=== PATIENT | male | born 1950 | race Caucasian/White ===

== ENCOUNTER 2020-01-29 15:02 | Emergency (ER) | payer BC ==
[~2020-01-29] VITALS: Ht 180.3 cm; Wt 92.7 kg
[2020-01-29 15:11] VITALS: TEMP 98.5
[2020-01-29] MEDS ORDERED: TYLENOL 325MG325 MG PO (15:47)
[2020-01-29] MEDS ORDERED: FARXIGA10 PO (15:48)
[2020-01-29] MEDS ORDERED: ASPIRIN 32325 MG/TAB PO (15:48)
[2020-01-29] MEDS ORDERED: LIPITOR 80MG80 MG PO (15:48)
[2020-01-29] MEDS ORDERED: GLUCOPHAGE1000 MG PO (15:49)
[2020-01-29] MEDS ORDERED: LOPID 600M600 MG/TAB PO (15:49)
[2020-01-29] MEDS ORDERED: TOPROL XL 25MG25 MG (15:50)
[2020-01-29 16:40] LABS: COLLECTION METHOD CLEAN CATCH
[2020-01-29 16:45] LABS: PH 6 (5-8); SQUAMOUS EPITHELIAL None Seen /hpf; URINE APPEARANCE Clear; URINE BACTERIA None Seen /hpf; URINE BILIRUBIN Negative (NEGATIVE); URINE BLOOD Negative (NEGATIVE); URINE COLOR Yellow; URINE GLUCOSE 3+ (NEGATIVE); URINE KETONE Trace (NEGATIVE); URINE LEUKOCYTE ESTERASE Negative (NEGATIVE); URINE NITRATE Negative (NEGATIVE); URINE PROTEIN(semi-quant) Negative (NEGATIVE); URINE RBC None Seen /hpf
[2020-01-29 17:10] VITALS: BP 134/86; PULSE 72
== END 2020-01-29 17:10 | disposition home or self-care (01) ==
LOC: COL.ER 15:02
PROVIDERS: Nurse Practitioner Primary Care
DX: K40.91 Unilateral inguinal hernia, without obstruction or gangrene, recurrent (principal); I10 Essential (primary) hypertension; E11.9 Type 2 diabetes mellitus without complications; E78.5 Hyperlipidemia, unspecified; I25.10 Atherosclerotic heart disease of native coronary artery without angina pectoris; Z95.5 Presence of coronary angioplasty implant and graft; Z88.5 Allergy status to narcotic agent; Z88.6 Allergy status to analgesic agent; Z79.82 Long term (current) use of aspirin; Z79.84 Long term (current) use of oral hypoglycemic drugs

== ENCOUNTER 2020-02-17 08:34 | Day surgery (SDC) | payer BC ==
[2020-02-17] VITALS (7 sets, daily range): BP systolic 129–142; BP diastolic 75–83; PULSE 72–86; TEMP 97.4–98.3
[~2020-02-17] VITALS: Ht 180.3 cm; Wt 96.5 kg
[~2020-02-17 08:34] MED LIST: ASPIRIN 32325 MG/TAB PO; FARXIGA10 PO; GLUCOPHAGE1000 MG PO; LIPITOR 80MG80 MG PO; LOPID 600M600 MG/TAB PO; TOPROL XL 25MG25 MG PO; TYLENOL 325MG325 MG PO
[2020-02-17 10:13] LABS: BASO % 0.5 % (0.0-2.0); EOS # 0.2 (0.0-0.7); EOS % 2.6 % (0-4.0); GRAN # 5.5 (1.4-6.5); GRAN % 67.9 % (42.2-75.2); HEMATOCRIT 49.1 % (42.0-52.0); HEMOGLOBIN 16.7 g/dl (13.5-18.0); LYMPH # 1.7 (1.2-3.4); MEAN CELL VOLUME 89 fl (80.0-100.0); MEAN CORPUSCULAR HEMOGLOBIN 30 pg (27.0-31.0); MEAN CORPUSCULAR HGB CONC 34 g/dl (33.0-37.0); MEAN PLATELET VOLUME 9.9 fl (7.4-10.4); MONO # 0.6 (0.1-0.6); MONO % 7.5 % (1.7-9.3); PLATELET COUNT 213 K/mm3 (130-400); RED BLOOD COUNT 5.55 M/mm3 (4.20-5.60); REDCELL DISTRIBUTION WIDTH-CV 13.1 % (11.5-14.5)
[2020-02-17 10:22] LABS: ALBUMIN 4.3 gm/dL (3.5-5.0); BILIRUBIN,TOTAL 0.9 mg/dL (0.0-1.0); CALCIUM 9.2 mg/dL (8.4-10.2); CREATININE, serum 0.78 (0.66-1.25); POTASSIUM 4.2 mmol/L (3.4-5.0); TOTAL PROTEIN 7.2 gm/dL (6.4-8.2)
[2020-02-17] MEDS ORDERED: ULTRAM 50MG TAB50 MG PO (12:31)
[2020-02-17] MEDS ORDERED: COLACE 100100 MG/CAP PO (12:32)
--- NOTE | 2020-02-17 13:06 | NUR ---
Pt to [facility] bay 1 via cart from PACU. Pt drowsy, but awake. Pt rates pain 5/10 to groin area. Pt also c/o mild nausea. O2 on at 2 liters via nasal canula. Exofin to surgical site on left groin. Clean, dry, and intact. IV fluids infusing to right hand without difficulties. Will continue to monitor. Call light within reach. Side rails up x2.
--- NOTE | 2020-02-17 13:21 | NUR ---
Fentanyl 25mcg IVSP given per PRN orders for pain, and Phenergan 6.25mg IVSP given per PRN orders. Will continue to monitor. Call light within reach.
--- NOTE | 2020-02-17 13:36 | NUR ---
Pt sleeping. Respirations even and unlabored. Will continue to monitor. Call light within reach.
--- NOTE | 2020-02-17 13:50 | NUR ---
Pt continues to sleep. Respirations even and unlabored. Will continue to monitor. Call light within reach.
--- NOTE | 2020-02-17 14:21 | NUR ---
Pt continues to sleep. Pt awoken to assess pain and nausea. Pt awakens easily. Pt rates pain 5/10 to left lower groin. Nausea "comes and goes" he states. Will continue to monitor. Call light within reach.
--- NOTE | 2020-02-17 14:50 | NUR ---
Pt awakens as nurse walks in. Pt grimaces with movement. Pt rates pain 5/10. Apple juice and pudding given per pt request. Will continue to monitor. Call light within reach.
--- NOTE | 2020-02-17 15:25 | NUR ---
This nurse spoke with about pt's pain, and no PO PRN pain medication was orders. Orders for Ultram PO PRN given.
--- NOTE | 2020-02-17 15:30 | NUR ---
Pt up to restroom with stand by assist. Gait slow and steady. Pt rates pain 3/10 while up and moving. Pt voids without difficulties. Pt back to room. Ultram 100 mg po given per prn orders. Pt assisted with dressing. Call light within reach.
--- NOTE | 2020-02-17 15:50 | NUR ---
Discharge instructions given. Pt voices understanding. IV site discontinued with all parts intact.
--- NOTE | 2020-02-17 16:00 | NUR ---
Pt escorted to private car via wheel chair. Pt accompanied home by his .
== END 2020-02-17 16:00 | disposition home or self-care (01) ==
LOC: SDCO 08:34
PROVIDERS: Surgery
DX: K40.91 Unilateral inguinal hernia, without obstruction or gangrene, recurrent (principal); K41.90 Unilateral femoral hernia, without obstruction or gangrene, not specified as recurrent; Z79.82 Long term (current) use of aspirin; Z79.84 Long term (current) use of oral hypoglycemic drugs; I10 Essential (primary) hypertension; E11.9 Type 2 diabetes mellitus without complications; E78.00 Pure hypercholesterolemia, unspecified; Z86.718 Personal history of other venous thrombosis and embolism; I25.10 Atherosclerotic heart disease of native coronary artery without angina pectoris; I25.2 Old myocardial infarction; E78.5 Hyperlipidemia, unspecified; K21.9 Gastro-esophageal reflux disease without esophagitis
CPT/HCPCS: C1781; J0690; J1100; J1885; J2405; J2550; J2704; J3010; J3475; J7030

== ENCOUNTER 2021-02-22 18:46 | Inpatient (IN) | payer BC, MEDICARE ==
[~2021-02-22] VITALS: Ht 182.9 cm; Wt 108.3 kg
[~2021-02-22 18:46] MED LIST changes: +COLACE 100100 MG/CAP PO; +ULTRAM 50MG TAB50 MG PO
[2021-02-22 19:43] LABS: ARTERIAL BLD GAS O2 SATURATION 96.4 % (92-100); ARTERIAL BLD GAS TCO2 CT 19.2; ARTERIAL BLOOD GAS BASE EXCESS -2.2 (-2-2); ARTERIAL BLOOD GAS HCO3 18.5 meq/L (22-26); ARTERIAL BLOOD GAS PO2 80.4 mmHg (80-100); ARTERIAL BLOOD GAS pH 7.52 (7.35-7.45)
[2021-02-22 19:44] LABS: ARTERIAL BLOOD GAS PCO2 23.3 mmHg (35-45)
[2021-02-22 20:10] LABS: BASO % 0.3 % (0.0-2.0); GRAN # 10.6 K/mm3 (1.4-6.5); GRAN % 88.3 % (42.2-75.2); HEMATOCRIT 41.9 % (42.0-52.0); HEMOGLOBIN 14.2 g/dl (13.5-18.0); LYMPH # 0.5 K/mm3 (1.2-3.4); LYMPH % 4.5 % (20.0-51.0); MEAN CELL VOLUME 88 fl (80.0-100.0); MEAN CORPUSCULAR HEMOGLOBIN 30 pg (27-31); MEAN CORPUSCULAR HGB CONC 34 g/dl (33.0-37.0); MEAN PLATELET VOLUME 9.8 fl (7.4-10.4); MONO # 0.5 K/mm3 (0.1-0.6); MONO % 4.4 % (1.7-9.3); PLATELET COUNT 310 K/mm3 (130-400); RED BLOOD COUNT 4.78 M/mm3 (4.20-5.60); REDCELL DISTRIBUTION WIDTH-CV 13.4 % (11.5-14.5)
[2021-02-22 20:18] LABS: COLLECTION METHOD CLEAN CATCH
[2021-02-22 20:28] LABS: MUCOUS Present (NOT PRESENT); PH 5 (5-8); SQUAMOUS EPITHELIAL 0-2 /hpf (0-10); URINE APPEARANCE Hazy (CLEAR/HAZY); URINE BACTERIA None Seen /hpf (NONE SEEN); URINE BILIRUBIN Negative (NEGATIVE); URINE BLOOD 1+ (NEGATIVE); URINE COLOR Yellow (YELLOW); URINE GLUCOSE 3+ (NEGATIVE); URINE KETONE Trace (NEGATIVE); URINE LEUKOCYTE ESTERASE Negative (NEGATIVE); URINE NITRATE Negative (NEGATIVE); URINE PROTEIN(semi-quant) 1+ (NEGATIVE); URINE RBC 0-2 /hpf (0-2); URINE UROBILINOGEN Negative (NEGATIVE)
[2021-02-22 20:28] LABS: ALBUMIN 2.8 gm/dL (3.4-4.8); BILIRUBIN,TOTAL 1.8 mg/dL (0.2-1.2); CALCIUM 8.9 mg/dL (8.4-10.2); CREATININE, serum 1.59 mg/dL (0.72-1.25)
[2021-02-22] MEDS ORDERED: TRICOR 48MG48 MG PO (20:32)
[2021-02-22] MEDS ORDERED: COZAAR 25MG25 MG/TAB PO (20:33)
[2021-02-23] VITALS (305 sets, daily range): BP systolic 92–99; BP diastolic 52–66; PULSE 110–120; TEMP 97.9–99.3; O2SAT 86–100
[2021-02-23 00:21] LABS: CALCIUM 8.4 mg/dL (8.4-10.2); CREATININE, serum 1.28 mg/dL (0.72-1.25); POTASSIUM 3.7 mmol/L (3.5-4.5)
--- NOTE | 2021-02-23 09:46 | NUR ---
Patient is currently on a ventilator and being boarded in the ED until an ICU bed is available. Patient is COVID positive. pest control worker contacted patient's spouse, Milady Caicedo #[phone] and confirmed that patient does not have a living will or a durable power of county attorney for health care. Worker discussed desired code status with spouse and spouse states that she wishes patient to be a Full Code. Worker contacted Dr Garcia's office, as she is patient's primary care provider, and confirmed that they do not have any advance directives on file in their office. Worker contacted patient's nurse, Brenda, and advised of the above information.
[2021-02-23 09:47] LABS: HEMATOCRIT 38.7 % (42.0-52.0); HEMOGLOBIN 12.8 g/dl (13.5-18.0); MEAN CELL VOLUME 91 fl (80.0-100.0); MEAN CORPUSCULAR HEMOGLOBIN 30 pg (27-31); MEAN CORPUSCULAR HGB CONC 33 g/dl (33.0-37.0); MEAN PLATELET VOLUME 9.6 fl (7.4-10.4); RED BLOOD COUNT 4.27 M/mm3 (4.20-5.60); REDCELL DISTRIBUTION WIDTH-CV 13.7 % (11.5-14.5)
[2021-02-23 09:51] LABS: PLATELET COUNT 180 K/mm3 (130-400)
[2021-02-23 10:18] LABS: BAND 9 % (0-10); LYMPHOCYTE 8 % (20.0-51.0); NEUTROPHILS 83 % (42.0-75.2); NUCLEATED RED BLOOD CELL 2 (0-6)
[2021-02-23 10:19] LABS: ALBUMIN 2.5 gm/dL (3.4-4.8); ANISOCYTOSIS 1+; BILIRUBIN,TOTAL 1.4 mg/dL (0.2-1.2); CALCIUM 7.6 mg/dL (8.4-10.2); CREATININE, serum 1.84 mg/dL (0.72-1.25); PLATELET ESTIMATE NORMAL (NORMAL); POTASSIUM 4.4 mmol/L (3.5-4.5); TOTAL PROTEIN 6.3 gm/dL (6.2-8.1)
[2021-02-23 10:20] LABS: OVALOCYTES 1+; POLYCHROMASIA 1+
[2021-02-23 11:32] LABS: ARTERIAL BLD GAS O2 SATURATION 99.3 % (92-100); ARTERIAL BLD GAS TCO2 CT 17.8; ARTERIAL BLOOD GAS BASE EXCESS -12.9 (-2-2); ARTERIAL BLOOD GAS HCO3 16.2 meq/L (22-26); ARTERIAL BLOOD GAS PCO2 50.2 mmHg (35-45); ARTERIAL BLOOD GAS PO2 210.3 mmHg (80-100); ARTERIAL BLOOD GAS pH 7.13 (7.35-7.45)
[2021-02-23 13:40] LABS: CALCIUM 7.3 mg/dL (8.4-10.2); CREATININE, serum 2.13 mg/dL (0.72-1.25); POTASSIUM 4.2 mmol/L (3.5-4.5)
--- NOTE | 2021-02-23 17:10 | NUR ---
MD Mookie in room for Non-tunneled hemodialysis catheter placement. Timeout compeleted, JOAQUIN Hernandez in room assisting, all in agreement for procedure
--- NOTE | 2021-02-23 17:29 | NUR ---
Sedation Vacation not performed per MD Thanh
--- NOTE | 2021-02-23 17:31 | NUR ---
MD Natividad notified HD catheter in place and OK to use per MD Mookie
--- NOTE | 2021-02-23 17:32 | NUR ---
pt intubated by dr lam rn in room.
[2021-02-23 18:08] LABS: ARTERIAL BLD GAS TCO2 CT 18.1; ARTERIAL BLOOD GAS BASE EXCESS -8.7 (-2-2); ARTERIAL BLOOD GAS PO2 100.7 mmHg (80-100); ARTERIAL BLOOD GAS pH 7.29 (7.35-7.45)
[2021-02-23 19:39] LABS: CALCIUM 7.3 mg/dL (8.4-10.2); CREATININE, serum 2.45 mg/dL (0.72-1.25); POTASSIUM 4.2 mmol/L (3.5-4.5)
--- NOTE | 2021-02-23 20:00 | NUR ---
Patient intubed and sedated. Patient coughs against vent. On sedation and pressors. Patient has a stage 2 pressure ulcer to coccyx. Mottled/purple discoloration from waist down. Cap refill >2 secs. Pulses in lower ext present but weak. Rectal temp probe placed. Patient repositioned.
[2021-02-24] VITALS (654 sets, daily range): BP systolic 103–150; BP diastolic 52–74; PULSE 97–151; TEMP 97.5–100.6; O2SAT 90–100
[2021-02-24 00:59] LABS: ARTERIAL BLD GAS O2 SATURATION 98.9 % (92-100); ARTERIAL BLD GAS TCO2 CT 18.8; ARTERIAL BLOOD GAS BASE EXCESS -7.9 (-2-2); ARTERIAL BLOOD GAS HCO3 17.6 meq/L (22-26); ARTERIAL BLOOD GAS PCO2 36.1 mmHg (35-45); ARTERIAL BLOOD GAS pH 7.31 (7.35-7.45)
[2021-02-24 01:00] LABS: ARTERIAL BLOOD GAS PO2 135.2 mmHg (80-100)
[2021-02-24 02:06] LABS: GASTROCCULT POSITIVE; pH GASTRIC CONTENTS 4
[2021-02-24 05:34] LABS: HEMOGLOBIN 11.1 g/dl (13.5-18.0); MEAN CELL VOLUME 92 fl (80.0-100.0); MEAN CORPUSCULAR HEMOGLOBIN 30 pg (27-31); MEAN CORPUSCULAR HGB CONC 33 g/dl (33.0-37.0); MEAN PLATELET VOLUME 11.8 fl (7.4-10.4); PLATELET COUNT 89 K/mm3 (130-400); RED BLOOD COUNT 3.71 M/mm3 (4.20-5.60); REDCELL DISTRIBUTION WIDTH-CV 14.5 % (11.5-14.5)
[2021-02-24 05:38] LABS: HEMATOCRIT 34.2 % (42.0-52.0)
--- NOTE | 2021-02-24 05:48 | NUR ---
Sedation vacation not preformed. Patient tachy and fighting vent when aroused. Lisbet from dialysis in room with patient currently. Patient remained sedated throughout night. Able to stop vasopressin and titrate down on levophed.
[2021-02-24 05:50] LABS: CREATININE, serum 2.75 mg/dL (0.72-1.25); MAGNESIUM 2.2 mg/dL (1.6-2.6); PHOSPHOROUS 5.2 mg/dL (2.3-4.7)
[2021-02-24 06:05] LABS: BAND 16 % (0-10); CALCIUM 5.8 mg/dL (8.4-10.2); LYMPHOCYTE 7 % (20.0-51.0); METAMYELOCYTE 1 % (0-0); NEUTROPHILS 70 % (42.0-75.2); PLATELET ESTIMATE DECREASED (NORMAL)
[2021-02-24 06:06] LABS: ANISOCYTOSIS 1+; POIKILOCYTOSIS 1+
--- NOTE | 2021-02-24 06:25 | NUR ---
Patient in afib RVR during dialysis. EKG ordered. JOAQUIN Frausto contacting Dr. Henson for orders.
[2021-02-24 06:35] LABS: ALANINE AMINOTRANSFERASE 167 U/L (0-55); ALKALINE PHOSPHATASE 92 U/L (40-150); AST,SGOT 125 U/L (5-34)
--- NOTE | 2021-02-24 06:43 | NUR ---
Patient remains in afib RVR. Dr. Henson recommends dig 0.25 IV but talk with hospitalist first. Called Cristin Pearson. Waiting on orders..
--- NOTE | 2021-02-24 07:22 | NUR ---
Report given to JOAQUIN Luu
--- NOTE | 2021-02-24 07:34 | NUR ---
Per Dr. Law start amio drip and consult cardiology for afib. Spoke with Dr. John. Start amio at 1mg.
--- NOTE | 2021-02-24 07:56 | NUR ---
INITIATION OF HD TX PATIENT'S HR 180'S ON MONITOR. DR. GORDON NOTIFIED, ORDERS RECEIVED & ADMINISTERED WITH NO IMPROVEMENT FOR THE PATIENT. ICU NURSE FARSHAD LOGAN NOTIFIED EICU PHYSICIAN, YOUNG & NO NEW ORDERS RECEIVED @ THIS TIME. 44 MINS INTO TX PATIENT REMAINS IN AFIB RVR & HYPOTENSIVE, DR. GORDON ORDERED TO DC TX 1 HOUR 16 MINS EARLY. NEXT HD TX PENDING LABS & ASSESSEMENT.
--- NOTE | 2021-02-24 08:49 | NUR ---
Patient started dialysis this morning at approx 0530 but when this nurse came on shift it was stopped due to onset of afib RVR. Amio bolus was given and then drip started.
[2021-02-24 10:21] LABS: INR 1.7 (0.8-3.0)
[2021-02-24 10:24] LABS: PARTIAL THROMBOPLASTIN TIME 32.2 SECONDS (26.0-37.0)
[2021-02-24 10:28] LABS: CALCIUM 6.9 mg/dL (8.4-10.2); CREATININE, serum 3.15 mg/dL (0.72-1.25); POTASSIUM 4.5 mmol/L (3.5-4.5)
[2021-02-24 14:51] LABS: CALCIUM 6.3 mg/dL (8.4-10.2); CREATININE, serum 3.35 mg/dL (0.72-1.25); POTASSIUM 4.4 mmol/L (3.5-4.5)
[2021-02-24 16:14] LABS: CALCIUM 6.4 mg/dL (8.4-10.2); CREATININE, serum 3.43 mg/dL (0.72-1.25); POTASSIUM 4.4 mmol/L (3.5-4.5)
[2021-02-24 16:48] LABS: HEPATITIS B SURFACE ANTIBODY <2.0 (()); HEPATITIS B SURFACE ANTIGEN Negative (Negative); HEPATITIS C VIRUS ANTIBODY Negative (Negative)
--- NOTE | 2021-02-24 20:40 | NUR ---
Sedation vacation not performed this afternoon as patient was not stable
[2021-02-24 20:44] LABS: CALCIUM 6.5 mg/dL (8.4-10.2); CREATININE, serum 3.52 mg/dL (0.72-1.25); POTASSIUM 3.7 mmol/L (3.5-4.5)
--- NOTE | 2021-02-24 20:58 | NUR ---
Titrated levophed down after starting vaso per Dr. Law's orders this morning.
[2021-02-24 23:11] LABS: ARTERIAL BLD GAS O2 SATURATION 97.4 % (92-100); ARTERIAL BLD GAS TCO2 CT 20.9; ARTERIAL BLOOD GAS BASE EXCESS -4.4 (-2-2); ARTERIAL BLOOD GAS HCO3 19.9 meq/L (22-26); ARTERIAL BLOOD GAS PCO2 34.1 mmHg (35-45); ARTERIAL BLOOD GAS PO2 94.2 mmHg (80-100); ARTERIAL BLOOD GAS pH 7.38 (7.35-7.45)
[2021-02-25] VITALS (733 sets, daily range): BP systolic 72–129; BP diastolic 44–68; PULSE 99–120; TEMP 98.1–100.2; O2SAT 61–100
--- NOTE | 2021-02-25 00:57 | NUR ---
CALLED TELE ICU SPOKE WITH DR. GRACIA CONCERNING BP 100-110/50'S, MAPS 58-65, HR 115-130. INFORMED HIM OF AMIO BOLUS X2, DRIP AT 1 THEN 0.5, TITRATING LEVO OFF AND BRIDGING HIM TO VASOPRESSIN, WHICH IS RUNNING AT 0.04 UNITS/MIN . INFORMED HIM OF CARDIOLOGY NOTE MENTIONING DIGOXIN. DR. GRACIA SAID TO NOT TITRATE VASOPRESSIN OR ADD ANY OTHER PRESSER, AND TO INCREASE AMIO DRIP TO 1 MG/MIN.
[2021-02-25 04:28] LABS: ARTERIAL BLD GAS O2 SATURATION 96.1 % (92-100); ARTERIAL BLD GAS TCO2 CT 20.3; ARTERIAL BLOOD GAS BASE EXCESS -4.9 (-2-2); ARTERIAL BLOOD GAS HCO3 19.3 meq/L (22-26); ARTERIAL BLOOD GAS PO2 81.9 mmHg (80-100); ARTERIAL BLOOD GAS pH 7.38 (7.35-7.45)
[2021-02-25 04:31] LABS: HEMOGLOBIN 11.1 g/dl (13.5-18.0); MEAN CELL VOLUME 89 fl (80.0-100.0); MEAN CORPUSCULAR HEMOGLOBIN 30 pg (27-31); MEAN CORPUSCULAR HGB CONC 34 g/dl (33.0-37.0); MEAN PLATELET VOLUME 12.4 fl (7.4-10.4); PLATELET COUNT 103 K/mm3 (130-400); RED BLOOD COUNT 3.73 M/mm3 (4.20-5.60); REDCELL DISTRIBUTION WIDTH-CV 14.6 % (11.5-14.5)
[2021-02-25 04:46] LABS: CALCIUM 6.6 mg/dL (8.4-10.2); CREATININE, serum 3.79 mg/dL (0.72-1.25); MAGNESIUM 2.5 mg/dL (1.6-2.6); PHOSPHOROUS 5.4 mg/dL (2.3-4.7); POTASSIUM 3.7 mmol/L (3.5-4.5)
[2021-02-25 04:50] LABS: HEMATOCRIT 33.1 % (42.0-52.0)
[2021-02-25 05:15] LABS: ANISOCYTOSIS 2+; BAND 24 % (0-10); HYPOCHROMIA 1+; LYMPHOCYTE 6 % (20.0-51.0); NEUTROPHILS 63 % (42.0-75.2); NUCLEATED RED BLOOD CELL 5 (0-6)
[2021-02-25 05:16] LABS: PLATELET ESTIMATE DECREASED (NORMAL); POLYCHROMASIA 2+
[2021-02-25 13:48] LABS: CALCIUM 6.5 mg/dL (8.4-10.2); CREATININE, serum 4.55 mg/dL (0.72-1.25); POTASSIUM 4.9 mmol/L (3.5-4.5)
--- NOTE | 2021-02-25 14:20 | NUR ---
Spoke with [place] with [facility]. Information given and will contact us when/if they find a bed.
--- NOTE | 2021-02-25 21:31 | NUR ---
Patient is not stable enough for a sedation vacation to be performed; sedation vacation not done today.
--- NOTE | 2021-02-25 21:39 | NUR ---
Patient progressively worsened throughout the day in terms of mottling, edema, and urine output. Spoke with Drs. Polk and Thanh about patient's condition and my concern at how quickly he was becoming more mottled and edematous. Chunks were also present in the Amrcelo catheter tube, which this nurse also informed Dr. Polk about. Patient is extremely cyanotic in his lower extremities, and even with the Doppler pulses were not present until you went as high as the popliteal pulses. Blisters also formed on the backs of his knees and right alejandro, and his scrotum was so edematous that it was weepy and fluid was seeping out through the skin. Dr. Polk stated that he would call Luiz, the patient's , and speak with her about the situation, including the efforts made to place the patient at another facility with CRRT capabilities.
[2021-02-26] VITALS (56 sets, daily range): BP systolic 78–107; BP diastolic 55–67; PULSE 102–107; TEMP 99.9; O2SAT 65–100
[2021-02-26 00:14] LABS: ARTERIAL BLD GAS O2 SATURATION 99.6 % (92-100); ARTERIAL BLD GAS TCO2 CT 9.2; ARTERIAL BLOOD GAS BASE EXCESS -22.7 (-2-2); ARTERIAL BLOOD GAS HCO3 8.1 meq/L (22-26)
[2021-02-26 00:15] LABS: ARTERIAL BLOOD GAS PO2 400.4 mmHg (80-100); ARTERIAL BLOOD GAS pH 6.97 (7.35-7.45)
--- NOTE | 2021-02-26 02:50 | NUR ---
[facility]. Not a candidaate for donation. [phone].
--- NOTE | 2021-02-26 02:57 | NUR ---
PT HYPOTENSIVE, TACHYCARDIC, VASO AT 0.04 UNITS/HR. CONTACTED JOE NAYLOR AND TELE ICU. ADDED LEVOPHED. TITRATED AND EVENTUALLY MAXED OUT, PT REMAINED HYPOTENSIVE. FAMILY CONTACTED AT 2311 AND AGAIN AT 0015, PROVIDED UPDATED ON OVERALL POOR PROGNOSIS. TOLD THEM THEY SHOULD COME IN TO SAY THEYRE GOODBYES. FAMILY ARRIVED AT 0130. CYNDY DIAZ AT BEDSIDE WITH FAMILY. DECISION WAS MADE TO MOVE TO COMFORT CARE. PT EXTUBATED AT 0205, TIME OF WAS 0220, CYNDY AT BEDSIDE THROUGHOUT. HOME CONTACTED BY HOUSE. SEE MAR/EMAR FOR TIMES AND TITRATIONS. SEE SPACEL[facility]S FOR EXACT VITAL SIGNS.
[2021-03-01 08:58] LABS: ARTERIAL BLOOD GAS PCO2 28.1 mmHg (35-45)
[2021-03-01 08:59] LABS: ARTERIAL BLOOD GAS PO2 127.1 mmHg (80-100)
== END 2021-02-26 03:35 | disposition expired | DRG 871 ==
LOC: COL.ER 18:46 → ICU 02-23 11:58 → EU 02-25 19:53 → ICU 02-26 03:35
PROVIDERS: Emergency Medicine; Internal Medicine Nephrology; Internal Medicine Pulmonary Disease; Nurse Practitioner; Nurse Practitioner Family; Personal Emergency Response Attendant; Student in an Organized Health Care Education/Training Program; ADMIT Internal Medicine
PROC: 05HM33Z Insertion of Infusion Device into Right Internal Jugular Vein, Percutaneous Approach (ICD-10-PCS; principal; 2021-02-23)
PROC: 05HY33Z Insertion of Infusion Device into Upper Vein, Percutaneous Approach (ICD-10-PCS; 2021-02-23)
PROC: 0BH17EZ Insertion of Endotracheal Airway into Trachea, Via Natural or Artificial Opening (ICD-10-PCS; 2021-02-23)
PROC: 5A1945Z Respiratory Ventilation, 24-96 Consecutive Hours (ICD-10-PCS; 2021-02-23)
PROC: 02HV33Z Insertion of Infusion Device into Superior Vena Cava, Percutaneous Approach (ICD-10-PCS; 2021-02-23)
PROC: 5A1D70Z Performance of Urinary Filtration, Intermittent, Less than 6 Hours Per Day (ICD-10-PCS; 2021-02-23)
PROC: XW033E5 Introduction of Remdesivir Anti-infective into Peripheral Vein, Percutaneous Approach, New Technology Group 5 (ICD-10-PCS; 2021-02-23)
PROC: 5A09357 Assistance with Respiratory Ventilation, Less than 24 Consecutive Hours, Continuous Positive Airway Pressure (ICD-10-PCS; 2021-02-23)
DX: A41.89 Other specified sepsis (principal); U07.1 COVID-19; E11.10 Type 2 diabetes mellitus with ketoacidosis without coma; J96.01 Acute respiratory failure with hypoxia; J18.9 Pneumonia, unspecified organism; J12.82 Pneumonia due to coronavirus disease 2019; N17.9 Acute kidney failure, unspecified; G93.40 Encephalopathy, unspecified; E87.3 Alkalosis; E78.00 Pure hypercholesterolemia, unspecified; Z66 Do not resuscitate; I25.10 Atherosclerotic heart disease of native coronary artery without angina pectoris; I10 Essential (primary) hypertension; E86.0 Dehydration; E11.65 Type 2 diabetes mellitus with hyperglycemia; I48.91 Unspecified atrial fibrillation; Z95.5 Presence of coronary angioplasty implant and graft; Z86.718 Personal history of other venous thrombosis and embolism; Z79.84 Long term (current) use of oral hypoglycemic drugs; Z79.82 Long term (current) use of aspirin; Z73.0 Burn-out; Z51.5 Encounter for palliative care
CPT/HCPCS: 99223-AI; 99233-AI; 99239; C1751; C9113; J0248; J0282; J0330; J0456; J0696; J1100; J1630; J1644; J1815; J2060; J2250; J2270; J2704; J3010; J3370; J3475; J7030; J7050; J7060; P9047